=== PATIENT | male | born 1965 | race Caucasian/White ===

== ENCOUNTER 2016-11-01 12:01 | Emergency (ER) | payer MEDICARE, OTHER ==
--- NOTE | ~2016-11-01 | CR71 ---
[facility]. [facility] A Service of [facility] & [facility] RADIOLOGY TEXT RESULTS PATIENT: RAHUL NICE LOCATION: SED : 69 UNIT #: [id number] AGE: [address]: Jude Rivera MD SEX: M ORDER DR: [id number] [address] [address] [id number] E MR#: [id number] Acc #: [id number] NAME: RAHUL NICE : 1965 SEX: M STUDY DATE/TIME: 11/01/2016 12:27 UNIT: SED ROOM: STUDY DESCRIPTION: CR Chest Single View Attending Physician: Jude Rivera M.D. Ordering Physician: Jude Rivera M.D. Primary Care Physician: No Primary Care Physician MEDICAL IMAGING REPORT This report is preliminary unless electronic signature is present. EXAM Portable chest. HISTORY Chest pain for several days. History of aortic valve replacement. FINDINGS Portable view of the chest demonstrates moderate lung volumes, satisfactory technique. No infiltrates or effusions. Stable cardiomediastinal silhouette in this patient post-median sternotomy. Indwelling venous access port overlying the right chest, distal tip mid-SVC. Overall, no acute findings. Dictated by... Edouard Liz M.D. THIS IS AN ELECTRONICALLY VERIFIED REPORT Edouard Liz M.D. at 11/05/2016 9:30 AM Kareem TD: 11/01/2016 16:27 JOB #: [id number] MEDICAL IMAGING REPORT Page 1 of 1
--- NOTE | ~2016-11-01 | EKG ---
PATIENT: RAHUL NICE UNIT #: [id number] Ventricular Rate: 77 BPM Atrial Rate: 77 BPM P-R Interval: 202 ms QRS Duration: 84 ms Q-T Interval: 400 ms QTC Calculation(Bezet): 452 ms P [place]: 85 degrees Calculated R [place]: 76 degrees Calculated T [place]: 90 degrees Diagnosis Line: Sinus rhythm with frequent Premature ventricular Diagnosis Line: complexes in a pattern of bigeminy and Possible Diagnosis Line: Premature atrial complexes with Aberrant Diagnosis Line: conduction Diagnosis Line: Low voltage QRS Diagnosis Line: Borderline ECG Diagnosis Line: Diagnosis Line: Confirmed by MARÍA ELENA JACOBS MD ([id number]) on Diagnosis Line: 11/08/2016 9:00:10 AM INTERPRETING MD: ARLENE PETERSON
--- NOTE | ~2016-11-01 | US85 ---
[facility]. [facility] A Service [facility] RADIOLOGY TEXT RESULTS PATIENT: RAHUL NICE LOCATION: SED : 69 UNIT #: [id number] AGE: [address]: Jude Rivera MD SEX: M ORDER DR: [id number] [place] [id number] E MR#: [id number] Acc #: [id number] NAME: RAHUL NICE : 1965 SEX: M STUDY DATE/TIME: 11/01/2016 12:48 UNIT: SED ROOM: STUDY DESCRIPTION: LE Veins Unilat or Ltd Stdy Attending Physician: Jude Rivera M.D. Ordering Physician: Jude Rivera M.D. Primary Care Physician: No Primary Care Physician MEDICAL IMAGING REPORT This report is preliminary unless electronic signature is present. EXAM Unilateral left lower extremity venous Doppler, 11/01/2016. HISTORY Left foot swelling for one month. TECHNIQUE Venous ultrasound examination of the left lower extremity was performed using grayscale, spectral Doppler and color flow Doppler imaging. FINDINGS The examination is negative. There is no evidence of left lower extremity deep venous thrombus from the groin to the lower calf. Visualized greater saphenous vein is also patent. IMPRESSION Negative examination. No evidence of left lower extremity deep venous thrombosis. Dictated by... Rhett Andrew M.D. THIS IS AN ELECTRONICALLY VERIFIED REPORT Rhett Andrew M.D. at 11/06/2016 10:34 AM TEV/tmw TD: 11/01/2016 16:47 JOB #: [id number] [facility] A Service [facility] RADIOLOGY TEXT RESULTS PATIENT: RAHUL NICE LOCATION: SED : [birth year] UNIT #: [id number] AGE: [address]: Jude Rivera MD SEX: M ORDER DR: MEDICAL IMAGING REPORT Page 1 of 1
[~2016-11-01 12:01] MED LIST: ATORVASTATIN CA10 MG PO; BROMPHED DM PO; CELEXA20 MG PO; DILANTIN KAPSE100 MG PO; KEPPRA1000 MG PO; LASIX PO; NITROGLYCERIN0.4 MG SL; WARFARIN SODIU7.5 M1 PO
[2016-11-01 12:57] LABS: BASOPHIL% 0.5 % (0-2.5); EOSINOPHIL# 0.2 X10e3 (0-0.7); EOSINOPHIL% 2.4 % (0.0-7.0); HEMATOCRIT 39.3 % (38.0-50.0); HEMOGLOBIN 12.6 gm/dL (13.0-16.0); LYMPHOCYTE# 1.2 X10e3 (1.0-3.5); LYMPHOCYTE% 13.3 % (17.0-45.0); MEAN CELL VOLUME 82.7 FL (83-96); MEAN CORPUSCULAR HEMOGLOBIN 26.4 PG (28-34); MEAN PLATELET VOLUME 9.6 FL (6.5-11.5); MONOCYTE# 0.6 X10e3 (0-1.0); MONOCYTE% 7.4 % (3.0-12.0); NEUTROPHIL# 6.7 X10e3 (1.5-7.1); NEUTROPHIL% 76.4 % (40-75); PLATELET COUNT 191 X10e3 (140-420); RED BLOOD COUNT 4.76 X10e (3.90-5.60); RED CELL DISTRIBUTION WIDTH 15.3 % (11.0-15.5); WHITE BLOOD COUNT 8.7 X10e3 (4.0-10.5)
[2016-11-01] MEDS ORDERED: WARFARIN SODIU7.5 M1 PO (12:58)
[2016-11-01] MEDS ORDERED: WARFARIN SODIUM1 M1 PO (12:58)
[2016-11-01] MEDS ORDERED: JANTOVEN5 MG PO (12:58)
[2016-11-01 12:59] LABS: DIFF IND NO
[2016-11-01] MEDS ORDERED: ALBUTEROL20 ml (12:59)
[2016-11-01] MEDS ORDERED: ALDACTONE25 MG (12:59)
[2016-11-01] MEDS ORDERED: CARTIA XT180 MG (12:59)
[2016-11-01] MEDS ORDERED: NYSTOP (12:59)
[2016-11-01] MEDS ORDERED: BUMEX2 MG (12:59)
[2016-11-01] MEDS ORDERED: CELEXA20 MG (12:59)
[2016-11-01 13:20] LABS: INR 3.4; PROTHROMBIN TIME (PATIENT) 38.5 SECONDS (9.5-12.4)
[2016-11-01 13:23] LABS: ALBUMIN SERUM 3.7 g/dL (3.5-5.0); BILIRUBIN, DIRECT 0.2 mg/dL (0.0-0.2); BILIRUBIN,INDIRECT 0.3 mg/dL (0.0-0.9); BILIRUBIN,TOTAL 0.5 mg/dL (0.2-2.0); BUN/CREATININE RATIO 10.71; CALCIUM SERUM 8.9 mg/dL (8.4-10.2); CREATININE SERUM 1.4 mg/dL (0.6-1.4); POTASSIUM 4.3 mmol/L (3.5-5.1); PROTEIN TOTAL SERUM 7.9 g/dL (6.0-8.3)
[2016-11-01 13:44] LABS: POC - CKMB 3.3 ng/mL (0.0-7.9); POC - TROPONIN <0.05 ng/mL (<=0.05)
== END 2016-11-01 14:16 | disposition home or self-care (01) ==
LOC: SED 12:01
PROVIDERS: Emergency Medicine
DX: M79.89 Other specified soft tissue disorders (principal); I50.9 Heart failure, unspecified; I25.10 Atherosclerotic heart disease of native coronary artery without angina pectoris; Z86.73 Personal history of transient ischemic attack (TIA), and cerebral infarction without residual deficits; Z79.01 Long term (current) use of anticoagulants; Z79.899 Other long term (current) drug therapy; Z88.5 Allergy status to narcotic agent; Z88.8 Allergy status to other drugs, medicaments and biological substances
CPT/HCPCS: 36415; 71010; 80048; 80076; 82553; 83880; 84484; 85025; 85610; 93005; 93971; 96374; 99284; J1940